=== PATIENT | male | born 1960 | race Caucasian/White ===

== ENCOUNTER 2019-04-23 09:32 | Emergency (ER) | payer MEDICAID ==
[~2019-04-23] VITALS: Ht 149.9 cm; Wt 40.0 kg
[2019-04-23] MEDS ORDERED: normal saline 1000ML IV soln IV ONE (09:40)
[2019-04-23 10:05] LABS: BASOPHILS % (AUTO) 0.3 % (0-1); EOSINOPHILS % (AUTO) 0 % (0-6); HEMATOCRIT 40.5 % (42.0-52.0); LYMPHOCYTES # (AUTO) 0.7 X10'3 (1.1-4.8); LYMPHOCYTES % (AUTO) 13.8 % (21-51); MEAN CORPUSCULAR HEMOGLOBIN 31.6 PG (27.0-31.0); MEAN CORPUSCULAR HGB CONC 34.7 g/dL (33.0-36.5); MEAN CORPUSCULAR VOLUME 91.2 FL (78-98); MEAN PLATELET VOLUME 7.1 FL (7.4-10.4); MONOCYTES # (AUTO) 0.8 X10'3 (0-0.9); MONOCYTES % (AUTO) 15.6 % (2-12); NEUTROPHILS # (AUTO) 3.6 X10'3 (1.8-7.7); NEUTROPHILS % (AUTO) 70.3 % (42-75); PLATELET COUNT 107 X10'3 (140-440); RED BLOOD COUNT 4.44 X10'6 (4.70-6.10); RED CELL DISTRIBUTION WIDTH 12.9 % (11.5-14.5); WHITE BLOOD COUNT 5.1 X10'3 (4.5-11.0)
[2019-04-23] MEDS ORDERED: acetaminophen 325mg tablet PO ONE (10:15)
[2019-04-23 10:21] LABS: ALANINE AMINOTRANSFERASE 55 U/L (12-78); ALBUMIN 3.2 G/DL (3.4-5.0); ALBUMIN/GLOBULIN RATIO 0.8 (1.1-1.5); ALKALINE PHOSPHATASE 89 IU/L (46-116); ANION GAP 9 (8-16); ASPARTATE AMINO TRANSFERASE 54 U/L (10-37); BILIRUBIN,TOTAL 0.3 MG/DL (0.1-1.0); BLOOD UREA NITROGEN 20 MG/DL (7-18); BUN/CREATININE RATIO 22.7 (5.4-32.0); CHLORIDE 101 MMOL/L (99-107); CREATININE 0.88 MG/DL (0.60-1.10); GLUCOSE 90 MG/DL (70-104); POTASSIUM 4.3 MMOL/L (3.5-5.1); SODIUM 138 MMOL/L (135-145); TOTAL CARBON DIOXIDE 28.2 MMOL/L (24-32); TOTAL PROTEIN 7.1 G/DL (6.4-8.2); eGFR 88 ML/MIN
[2019-04-23 10:35] LABS: PLATELET ESTIMATE DECREASED; TOTAL CELLS COUNTED 100
[2019-04-23] MEDS ORDERED: CefTRIAXone 2gm/D5W 50ml 50 ML IV ONE (11:10)
[2019-04-23 11:19] LABS: CLARITY,URINE CLOUDY (Clear); COLOR,URINE YELLOW (Yellow); GLUCOSE, URINE NEGATIVE (Neg); KETONES,URINE 15 mg/dl (Neg); LEUKOCYTE ESTERASE ,URINE NEGATIVE (Neg); NITRITES, URINE NEGATIVE (Neg); OCCULT BLOOD,URINE NEGATIVE (Neg); PH,URINE 6.5 (4.8-8.0); PROTEIN,URINE NEGATIVE (Neg); UROBILINOGEN,URINE 0.2 E.U/dL (0.2-1.0)
[2019-04-23 11:23] LABS: UA COLLECTION TYPE URINAL
[2019-04-23 11:25] LABS: MUCUS STRANDS MODERATE /LPF (Neg); SQUAMOUS EPITHELIAL CELL,UR FEW /LPF (FEW)
[2019-04-23 11:26] LABS: BACTERIA,URINE FEW /HPF (Neg); RBC,URINE 0-2 /HPF (0-2); WBC,URINE 0-4 /HPF (0-4)
[2019-04-23] MEDS ORDERED: TAM75C PO (14:21)
[2019-04-23] MEDS ORDERED: AZIT250T PO (14:21)
[2019-04-23 15:13] VITALS: BP 109/89
== END 2019-04-23 15:19 | disposition home or self-care (01) ==
LOC: ER 09:33
DX: J10.1 Influenza due to other identified influenza virus with other respiratory manifestations (principal); Z79.2 Long term (current) use of antibiotics; Z79.899 Other long term (current) drug therapy
CPT/HCPCS: 36415; 71045; 74176; 80053; 81001; 83605; 84145; 85025; 87040; 87502; 87503; 96365; 99285; J0696; J7030

== ENCOUNTER 2020-02-22 11:55 | Emergency (ER) | payer MEDICAID ==
[~2020-02-22] VITALS: Ht 144.8 cm; Wt 40.0 kg
[2020-02-22] MEDS ORDERED: normal saline 1000ML IV soln IVB ONE ×3 (12:05→15:30)
[2020-02-22] MEDS ORDERED: acetaminophen 325mg tablet PO ONE (12:40)
[2020-02-22 13:02] LABS: BASOPHILS % (AUTO) 0.2 % (0-1); EOSINOPHILS % (AUTO) 0 % (0-6); HEMATOCRIT 39.6 % (42.0-52.0); HEMOGLOBIN 13.5 g/dl (14.0-17.9); LYMPHOCYTES # (AUTO) 0.6 X10'3 (1.1-4.8); LYMPHOCYTES % (AUTO) 4.3 % (21-51); MEAN CORPUSCULAR HEMOGLOBIN 31.1 PG (27.0-31.0); MEAN CORPUSCULAR HGB CONC 34.1 g/dL (33.0-36.5); MEAN CORPUSCULAR VOLUME 91.3 FL (78-98); MEAN PLATELET VOLUME 6.5 FL (7.4-10.4); MONOCYTES % (AUTO) 7.9 % (2-12); NEUTROPHILS # (AUTO) 11.6 X10'3 (1.8-7.7); NEUTROPHILS % (AUTO) 87.6 % (42-75); PLATELET COUNT 149 X10'3 (140-440); RED BLOOD COUNT 4.34 X10'6 (4.70-6.10); RED CELL DISTRIBUTION WIDTH 12.9 % (11.5-14.5); WHITE BLOOD COUNT 13.3 X10'3 (4.5-11.0)
[2020-02-22 13:15] LABS: ALANINE AMINOTRANSFERASE 62 U/L (12-78); ALBUMIN/GLOBULIN RATIO 0.7 (1.1-1.5); ALKALINE PHOSPHATASE 108 IU/L (46-116); ANION GAP 10 (8-16); ASPARTATE AMINO TRANSFERASE 39 U/L (10-37); BILIRUBIN,TOTAL 0.6 MG/DL (0.1-1.0); BLOOD UREA NITROGEN 17 MG/DL (7-18); BUN/CREATININE RATIO 19.5 (5.4-32.0); CALCIUM 9.1 MG/DL (8.5-10.1); CHLORIDE 103 MMOL/L (99-107); CREATININE 0.87 MG/DL (0.60-1.10); GLUCOSE 96 MG/DL (70-104); SODIUM 140 MMOL/L (135-145); TOTAL CARBON DIOXIDE 27.3 MMOL/L (24-32); TOTAL PROTEIN 7.3 G/DL (6.4-8.2); eGFR 89 ML/MIN
--- NOTE | 2020-02-22 16:45 | NUR ---
ua send to lab.
[2020-02-22 17:04] LABS: CLARITY,URINE CLOUDY (Clear); COLOR,URINE YELLOW (Yellow); GLUCOSE, URINE NEGATIVE (Neg); KETONES,URINE >=80 mg/dl (Neg); LEUKOCYTE ESTERASE ,URINE LARGE (Neg); NITRITES, URINE NEGATIVE (Neg); OCCULT BLOOD,URINE TRACE-INTACT (Neg); PROTEIN,URINE 30 mg/dl (Neg); UROBILINOGEN,URINE 0.2 E.U/dL (0.2-1.0)
[2020-02-22 17:09] LABS: UA COLLECTION TYPE CLN CATCH MIDSTREAM
[2020-02-22] MEDS ORDERED: SULF1TAB49 PO (17:11)
[2020-02-22 17:16] LABS: BACTERIA,URINE 4+ /HPF (Neg); RBC,URINE NONE SEEN /HPF (0-2); SQUAMOUS EPITHELIAL CELL,UR FEW /LPF (FEW); WBC,URINE 50-100 /HPF (0-4)
[2020-02-22 17:31] VITALS: BP 111/78
== END 2020-02-22 17:35 | disposition home or self-care (01) ==
LOC: ER 11:56
DX: N39.0 Urinary tract infection, site not specified (principal); R32 Unspecified urinary incontinence; R50.9 Fever, unspecified; Z86.19 Personal history of other infectious and parasitic diseases; Z79.2 Long term (current) use of antibiotics
CPT/HCPCS: 36415; 80053; 81001; 83605; 84145; 85025; 87040; 87077; 87088; 87186; 96360; 96361; 99283; J7030

== ENCOUNTER 2020-02-24 12:11 | Inpatient (IN) | payer MEDICAID ==
[~2020-02-24] VITALS: Ht 165.1 cm; Wt 40.0 kg
[~2020-02-24 12:11] MED LIST: SULF1TAB49 PO
[2020-02-24] MEDS ORDERED: acetaminophen 325mg tablet PO STA (12:21)
[2020-02-24] MEDS ORDERED: CefTRIAXone 2gm/D5W 50ml BAG 50 ML IV ONE (12:25)
[2020-02-24] MEDS ORDERED: normal saline 1000ML IV soln IV ONE (12:25)
[2020-02-24 12:56] LABS: BASOPHILS % (AUTO) 0.2 % (0-1); EOSINOPHILS % (AUTO) 0.2 % (0-6); HEMATOCRIT 36.7 % (42.0-52.0); HEMOGLOBIN 12.5 g/dl (14.0-17.9); LYMPHOCYTES # (AUTO) 1.4 X10'3 (1.1-4.8); LYMPHOCYTES % (AUTO) 11.7 % (21-51); MEAN CORPUSCULAR HGB CONC 34.1 g/dL (33.0-36.5); MEAN PLATELET VOLUME 6.8 FL (7.4-10.4); MONOCYTES # (AUTO) 1.5 X10'3 (0-0.9); NEUTROPHILS # (AUTO) 8.8 X10'3 (1.8-7.7); NEUTROPHILS % (AUTO) 74.9 % (42-75); PLATELET COUNT 136 X10'3 (140-440); RED BLOOD COUNT 4.03 X10'6 (4.70-6.10); RED CELL DISTRIBUTION WIDTH 13.1 % (11.5-14.5); WHITE BLOOD COUNT 11.7 X10'3 (4.5-11.0)
[2020-02-24 13:09] LABS: ALANINE AMINOTRANSFERASE 66 U/L (12-78); ALBUMIN 2.5 G/DL (3.4-5.0); ALBUMIN/GLOBULIN RATIO 0.6 (1.1-1.5); ALKALINE PHOSPHATASE 97 IU/L (46-116); ANION GAP 10 (8-16); ASPARTATE AMINO TRANSFERASE 96 U/L (10-37); BILIRUBIN,TOTAL 0.3 MG/DL (0.1-1.0); BLOOD UREA NITROGEN 18 MG/DL (7-18); CALCIUM 8.6 MG/DL (8.5-10.1); CHLORIDE 101 MMOL/L (99-107); GLUCOSE 70 MG/DL (70-104); POTASSIUM 3.9 MMOL/L (3.5-5.1); SODIUM 136 MMOL/L (135-145); TOTAL CARBON DIOXIDE 25.4 MMOL/L (24-32); TOTAL PROTEIN 6.9 G/DL (6.4-8.2); eGFR 86 ML/MIN
[2020-02-24] MEDS ORDERED: magnesium Cl slow-release 64mg tablet PO PRN (14:45)
[2020-02-24] MEDS ORDERED: magnesium 2GM in 50ml NS 50 ML IV PRN (14:45)
[2020-02-24] MEDS ORDERED: acetaminophen 325mg tablet PO PRN (14:45)
[2020-02-24] MEDS ORDERED: magnesium 4gm in 100ml NS 100 ML IV PRN (14:45)
[2020-02-24] MEDS ORDERED: potassium Cl 40MEQ/1/2NS 520ml 520 ML IV PRN ×2 (14:45)
[2020-02-24] MEDS ORDERED: normal saline 1000ml 1,000 ML IV SCH (14:45)
[2020-02-24] MEDS ORDERED: potassium Cl 20 mEq SR tablet PO PRN (14:45)
[2020-02-24] MEDS ORDERED: POLY17PO10 PO (14:52)
[2020-02-24] MEDS ORDERED: RISP1TAB13 PO (14:52)
[2020-02-24] MEDS ORDERED: FLUV100T3 PO (14:52)
[2020-02-24] MEDS ORDERED: BACDS PO (14:52)
[2020-02-24] MEDS ORDERED: SENN-263 PO (14:52)
[2020-02-24] MEDS ORDERED: BENZ0.5T27 PO (14:52)
[2020-02-24] MEDS ORDERED: LACTC PO (14:52)
[2020-02-24] MEDS ORDERED: CRAN450T4 PO (14:52)
[2020-02-24] MEDS ORDERED: ASCO500T28 PO (14:52)
--- NOTE | 2020-02-24 19:05 | NUR ---
Patient in room PCU 3025. I have received report from ANTONI Alarcon in ER and had the opportunity to ask questions and assume patient care.
[2020-02-24] MEDS: K and/or MAG REPLACEMENT MC SCH (20:00)
[2020-02-24 22:00] VITALS: BP 125/76
--- NOTE | 2020-02-24 22:21 | NUR ---
page sent to [facility] regarding low blood sugar "PAGER ID: [phone] MESSAGE: [phone] Esdras Perry, patient being treated for UTI, blood sugar is 67, can i hang supportive fluids? Parris CORRALES #[id number]" Johnnyo replied with DC NS @100, start D5/NS @100 and start accu checks per unit protocol for NPO, patient refusing food.
[2020-02-24] MEDS: dextrose 5%-normal saline 1,000 ML IV SCH (23:00)
[2020-02-25 02:00] VITALS: BP 114/66
[2020-02-25 06:20] LABS: ANION GAP 7 (8-16); BLOOD UREA NITROGEN 13 MG/DL (7-18); BUN/CREATININE RATIO 17.1 (5.4-32.0); CHLORIDE 105 MMOL/L (99-107); CREATININE 0.76 MG/DL (0.60-1.10); GLUCOSE 97 MG/DL (70-104); MAGNESIUM 2.1 MG/DL (1.5-2.4); POTASSIUM 3.7 MMOL/L (3.5-5.1); SODIUM 136 MMOL/L (135-145); TOTAL CARBON DIOXIDE 24.2 MMOL/L (24-32); eGFR > 90 ML/MIN
[2020-02-25 06:24] LABS: BASOPHILS # (AUTO) 0.1 X10'3 (0-0.2); BASOPHILS % (AUTO) 0.8 % (0-1); EOSINOPHILS % (AUTO) 0.1 % (0-6); HEMATOCRIT 34.9 % (42.0-52.0); HEMOGLOBIN 11.8 g/dl (14.0-17.9); LYMPHOCYTES % (AUTO) 11.4 % (21-51); MEAN CORPUSCULAR HGB CONC 33.7 g/dL (33.0-36.5); MONOCYTES % (AUTO) 12.5 % (2-12); NEUTROPHILS # (AUTO) 6.3 X10'3 (1.8-7.7); NEUTROPHILS % (AUTO) 75.2 % (42-75); PLATELET COUNT 133 X10'3 (140-440); RED CELL DISTRIBUTION WIDTH 13.2 % (11.5-14.5); WHITE BLOOD COUNT 8.4 X10'3 (4.5-11.0)
--- NOTE | 2020-02-25 06:43 | NUR ---
Problems reprioritized. Patient report given, questions answered & plan of care reviewed with ANTONI Matos.
[2020-02-25 07:00] VITALS: BP 115/73
[2020-02-25] MEDS: CefTRIAXone/D5W-Rocephin 1gm 50 ML IV SCH (08:00)
[2020-02-25] MEDS: K and/or MAG REPLACEMENT MC SCH ×2 (08:00→20:00)
[2020-02-25] MEDS: dextrose 5%-normal saline 1,000 ML IV SCH ×2 (08:30→20:30)
[2020-02-25 11:00] VITALS: BP 109/62
--- NOTE | 2020-02-25 11:16 | NUR ---
Height and BMI appear to be in error. Height from visit earlier February" and last April". Likely not 65", Per ED documentation pt is well developed, well nourished. History of developmental delay, resides at shelter. History of cerebral palsy and usually energetic per ED note, presented d/t concerns of recently not eating or drinking as usual and lethargy, recent UTI and admitted again with UTI. On a pureed diet. Ate 50% of starch/soup this morning. Add ensure enlive. Will continue to follow and monitor need for additional intervention. Addendum: 02/25/20 at [address] Amended: Links added.
[2020-02-25] MEDS ORDERED: lactobacillus rhamnosus 10,000 MMU CELLS/CAPSULE PO SCH (12:15)
[2020-02-25 15:00] VITALS: BP 115/76
[2020-02-25] MEDS ORDERED: risperiDONE 0.5mg tablet PO SCH (17:00)
[2020-02-25] MEDS ORDERED: benztropine 1mg tablet PO SCH (17:00)
--- NOTE | 2020-02-25 18:16 | NUR ---
Problems reprioritized. Patient report given, questions answered & plan of care reviewed with .ashley gibson
[2020-02-25] MEDS ORDERED: non-formulary drug (Cranberry Extract (Cranberry) 1 TAB) PO SCH (20:00)
[2020-02-25] MEDS: lactobacillus rhamnosus 10,000 MMU CELLS/CAPSULE PO SCH (20:21)
[2020-02-25] MEDS: fluvoxamine 25 MG tablet PO SCH (20:21)
[2020-02-25] MEDS: ascorbic acid 500mg tablet PO SCH (20:21)
[2020-02-25] MEDS ORDERED: sennosides 8.6mg tablet PO SCH (21:00)
[2020-02-25 22:00] VITALS: BP 124/76
[2020-02-26 02:00] VITALS: BP 143/77
[2020-02-26 06:00] VITALS: BP 119/71
--- NOTE | 2020-02-26 06:09 | NUR ---
Patient in room PCU 3025. I have received report from ANTONI Krause and had the opportunity to ask questions and assume patient care.
--- NOTE | 2020-02-26 06:09 | NUR ---
Report given to Randee CORRALES.
--- NOTE | 2020-02-26 07:10 | NUR ---
Problems reprioritized. Patient report given, questions answered & plan of care reviewed with ANTONI Ba.
[2020-02-26 07:29] LABS: BASOPHILS % (AUTO) 0.3 % (0-1); EOSINOPHILS % (AUTO) 0.5 % (0-6); HEMATOCRIT 36.5 % (42.0-52.0); HEMOGLOBIN 12.6 g/dl (14.0-17.9); MEAN CORPUSCULAR HEMOGLOBIN 31.2 PG (27.0-31.0); MEAN CORPUSCULAR HGB CONC 34.4 g/dL (33.0-36.5); MEAN CORPUSCULAR VOLUME 90.6 FL (78-98); MEAN PLATELET VOLUME 6.9 FL (7.4-10.4); MONOCYTES # (AUTO) 0.9 X10'3 (0-0.9); MONOCYTES % (AUTO) 14.9 % (2-12); NEUTROPHILS # (AUTO) 3.8 X10'3 (1.8-7.7); NEUTROPHILS % (AUTO) 66.3 % (42-75); PLATELET COUNT 161 X10'3 (140-440); RED BLOOD COUNT 4.03 X10'6 (4.70-6.10); RED CELL DISTRIBUTION WIDTH 13.1 % (11.5-14.5); WHITE BLOOD COUNT 5.7 X10'3 (4.5-11.0)
[2020-02-26 07:54] LABS: ANION GAP 9 (8-16); BLOOD UREA NITROGEN 6 MG/DL (7-18); BUN/CREATININE RATIO 10.2 (5.4-32.0); CALCIUM 8.2 MG/DL (8.5-10.1); CHLORIDE 108 MMOL/L (99-107); CREATININE 0.59 MG/DL (0.60-1.10); GLUCOSE 97 MG/DL (70-104); POTASSIUM 3.6 MMOL/L (3.5-5.1); SODIUM 143 MMOL/L (135-145); TOTAL CARBON DIOXIDE 26.5 MMOL/L (24-32); eGFR > 90 ML/MIN
[2020-02-26] MEDS: CefTRIAXone/D5W-Rocephin 1gm 50 ML IV SCH (07:54)
[2020-02-26] MEDS: lactobacillus rhamnosus 10,000 MMU CELLS/CAPSULE PO SCH (07:55)
[2020-02-26] MEDS: ascorbic acid 500mg tablet PO SCH (07:55)
[2020-02-26] MEDS ORDERED: polyethylene glycol 3350 17gm powd pack PO SCH (08:00)
[2020-02-26] MEDS: fluvoxamine 25 MG tablet PO SCH (08:49)
[2020-02-26] MEDS: dextrose 5%-normal saline 1,000 ML IV SCH (10:24)
[2020-02-26 11:00] VITALS: BP 134/90
[2020-02-26 11:28] VITALS: BP 119/71
--- NOTE | 2020-02-26 13:09 | NUR ---
spoke to Sandra Mcmullen from [facility]. Stated she would accept the patient once there is an orders to discharge with home meds. Stated there would be a van available after [address]. Paged Dr[address] Samira Mcdaniels for the specific orders. this took place at 1350. Waiting for call back.
[2020-02-26 15:00] VITALS: BP 135/83
--- NOTE | 2020-02-26 15:32 | NUR ---
Patient discharged at this time. Caregiver/ Director from [facility] signed discharge documentation and was handed discharge papers. Patient got into the van with moderate assistance. Also, Esdras Chele was informed to let the patient's nurse ( Sandra CORRALES) know about new infiltration on patients left arm, dressing was placed and patient to keep arm elevated. Patient stable, vital wnl, last BS stable, in no distress, clean, no wounds to his bottom, ambulating with assistance, equal strength in arms and legs bilateral.
== END 2020-02-26 15:20 | disposition home or self-care (01) | DRG 468 ==
LOC: ER 12:11 → ED HOLD 14:41 → PCU 3S 19:15
PROVIDERS: ADMIT Internal Medicine; ATTEND Internal Medicine
DX: R32 Unspecified urinary incontinence (principal); B18.2 Chronic viral hepatitis C; D64.9 Anemia, unspecified; F20.81 Schizophreniform disorder; F42.9 Obsessive-compulsive disorder, unspecified; F73 Profound intellectual disabilities; F84.0 Autistic disorder; G80.9 Cerebral palsy, unspecified; B96.4 Proteus (mirabilis) (morganii) as the cause of diseases classified elsewhere
CPT/HCPCS: 36415; 80048; 80053; 82948; 83605; 83735; 84145; 85025; 87040; 93005; 96365; 97110; 97161; 97530; 99285; G0378; J0696; J7030; J7042

== ENCOUNTER 2020-06-10 19:35 | Emergency (ER) | payer MEDICAID ==
[~2020-06-10] VITALS: Ht 167.6 cm; Wt 70.0 kg
[~2020-06-10 19:35] MED LIST changes: +ASCO500T28 PO; +BENZ0.5T27 PO; +CRAN450T4 PO; +FLUV100T3 PO; +LACTC PO; +POLY17PO10 PO; +RISP1TAB13 PO; +SENN-263 PO; +SULF1TAB45 PO; -SULF1TAB49 PO
[2020-06-10 22:51] VITALS: BP 146/92
== END 2020-06-10 23:11 | disposition home or self-care (01) ==
LOC: ER 19:35
DX: S01.112A Laceration without foreign body of left eyelid and periocular area, initial encounter (principal); Z86.19 Personal history of other infectious and parasitic diseases; Z87.440 Personal history of urinary (tract) infections; Z88.0 Allergy status to penicillin; Z79.899 Other long term (current) drug therapy; Z79.2 Long term (current) use of antibiotics; W19.XXXA Unspecified fall, initial encounter; Y93.89 Activity, other specified; Y92.89 Other specified places as the place of occurrence of the external cause; Y99.8 Other external cause status
CPT/HCPCS: 12011; 70450; 72125; 99285

== ENCOUNTER 2020-09-03 20:00 | Emergency (ER) | payer MEDICAID ==
[~2020-09-03] VITALS: Ht 144.8 cm; Wt 41.1 kg
[2020-09-03] MEDS ORDERED: diazepam inj 5 MG/ML inj. IM ONE (22:00)
[2020-09-03 22:53] LABS: BASOPHILS % (AUTO) 0.6 % (0-1); EOSINOPHILS # (AUTO) 0.3 X10'3 (0-0.9); EOSINOPHILS % (AUTO) 5.4 % (0-6); HEMATOCRIT 36.9 % (42.0-52.0); HEMOGLOBIN 12.6 g/dl (14.0-17.9); MEAN CORPUSCULAR HGB CONC 34.2 g/dL (33.0-36.5); MEAN CORPUSCULAR VOLUME 90.8 FL (78-98); MEAN PLATELET VOLUME 6.8 FL (7.4-10.4); MONOCYTES # (AUTO) 0.8 X10'3 (0-0.9); NEUTROPHILS # (AUTO) 2.1 X10'3 (1.8-7.7); PLATELET COUNT 163 X10'3 (140-440); RED BLOOD COUNT 4.07 X10'6 (4.70-6.10); RED CELL DISTRIBUTION WIDTH 12.9 % (11.5-14.5); WHITE BLOOD COUNT 5.3 X10'3 (4.5-11.0)
[2020-09-03 22:57] LABS: ALBUMIN 2.7 G/DL (3.4-5.0); ANION GAP 4 (8-16); BLOOD UREA NITROGEN 23 MG/DL (7-18); BUN/CREATININE RATIO 21.3 (5.4-32.0); CALCIUM 8.5 MG/DL (8.5-10.1); CHLORIDE 107 MMOL/L (99-107); CREATININE 1.08 MG/DL (0.60-1.10); GLUCOSE 111 MG/DL (70-104); POTASSIUM 3.8 MMOL/L (3.5-5.1); SODIUM 141 MMOL/L (135-145); TOTAL CARBON DIOXIDE 29.8 MMOL/L (24-32); eGFR 69 ML/MIN
--- NOTE | 2020-09-04 00:07 | NUR ---
CALLED REPORT TO ARAM CORRALES AT [facility]. WILL FAX COVID RESULT WHEN AVAILABLE.
[2020-09-04 00:18] VITALS: BP 97/63
== END 2020-09-04 00:47 | disposition short-term general hospital (02) ==
LOC: ER 20:01
DX: I80.9 Phlebitis and thrombophlebitis of unspecified site (principal); Z20.822 Contact with and (suspected) exposure to COVID-19; R62.50 Unspecified lack of expected normal physiological development in childhood; Z87.440 Personal history of urinary (tract) infections; Z86.19 Personal history of other infectious and parasitic diseases; Z88.0 Allergy status to penicillin; Z79.2 Long term (current) use of antibiotics; Z79.899 Other long term (current) drug therapy
CPT/HCPCS: 80048; 85025; 87635; 96372; 99285; C9803; J3360

== ENCOUNTER 2020-09-09 16:03 | Emergency (ER) | payer MEDICAID ==
[~2020-09-09] VITALS: Ht 144.8 cm; Wt 37.3 kg
[2020-09-09 16:34] VITALS: BP 112/72
== END 2020-09-09 18:56 | disposition home or self-care (01) ==
LOC: ER 16:03
DX: S61.205A Unspecified open wound of left ring finger without damage to nail, initial encounter (principal); S60.042A Contusion of left ring finger without damage to nail, initial encounter; Z86.19 Personal history of other infectious and parasitic diseases; Z88.0 Allergy status to penicillin; Z79.899 Other long term (current) drug therapy; X58.XXXA Exposure to other specified factors, initial encounter; Y93.89 Activity, other specified; Y92.89 Other specified places as the place of occurrence of the external cause; Y99.8 Other external cause status
CPT/HCPCS: 73140; 99283